=== PATIENT | female | born 1935 | race Caucasian/White ===

== ENCOUNTER → 2023-08-20 13:52 | Outpatient (BNV) | payer MEDICARE, SELFPAY | PROVIDERS: PCP Family Medicine; Visit Provider Internal Medicine Medical Oncology | DX: R59.1 Generalized enlarged lymph nodes (principal) | CPT/HCPCS: 99204; 99213 ==

== ENCOUNTER 2023-09-07 13:04 | Outpatient (AMB) | payer MEDICARE, SELFPAY ==
--- NOTE | 2023-09-07 13:20 | A.OFFVIS_ITS ---
Intake Vital Signs 3 09/07/23 13:30 Height 5 ft 6 in Weight 120 lb BMI 19.4 BP 130/64 Blood Pressure Location Lt brachial Position Sitting Pulse 66 Intake Visit Reasons: Neck adenopathy Intake Note: Patient is seen in office for evaluation and treatment of neck adenopathy. 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 She reports a previous history of non- Hodgkin's lymphoma and has had multiple lymph nodes removed but no chemotherapy required. She also has a history of an endocrine pancreatic tumor perhaps a insulinoma treated by Dr. Santiago Atkinson in [place]. She was recently diagnosed with a skin rash on her back and feels that they may be related to the enlarged lymph node. She also has numbness and bluish changes in the left arm involving the 1st 2nd and 3rd fingers. She is requesting excision of the palpable lymph node. [facility] Medical History Osteoporosis Gluten-sensitive enteropathy Lymphadenitis Surgical History Hx of hysterectomy Family History Father Prostate CA Mother Cerebrovascular accident Social History Patient Tobacco Use Status: Never used Tobacco service: No Current occupational status: retired Review of Systems Const All systems reviewed & are unremarkable except as noted in HPI and below Physical Exam Vital Signs: Last Vital Signs Pulse 66 09/07/23 13:30 BP 130/64 09/07/23 13:30 BMI result Body Mass Index 19.4 Const General: cooperative and no acute distress Nutritional Appearance: well nourished Orientation/consciousness: patient oriented x3 Limitations: no limitations HEENT Head: Yes normocephalic and Yes atraumatic Ears: hearing grossly normal bilaterally Neck Neck images: 2 1. 1 cm mobile lymph node noted at the hairline posterior right neck. Resp Effort & Inspection: normal respiratory effort, no audible wheezes, no cough and no respiratory distress Cardio Jugular venous distension: no JVD GI Inspection: Yes normal to inspection Skin Other: Warm, dry, no rash Neuro General: patient oriented x3 Extrem General: Yes no clubbing, cyanosis or edema Assessment & Plan Assessment & Plan (1) Head and neck lymphadenopathy: Code(s): R59.1 - Generalized enlarged lymph nodes Plan 87-year-old female patient presenting with enlarged lymph node in the posterior right neck. This was confirmed on physical examination. Patient does have a prior history of non-Hodgkin's lymphoma and pancreatic tumor and has undergone previous lymph nodes excisions. She is requested excision of this enlarged lymph node. I reviewed the procedure, risks, and alternatives in detail and she consents to the excision of the right posterior neck lymph node. This will be scheduled as a short-stay surgery at her earliest convenience. Coding Level of Care Code New Pt Level 4 (68509) Diagnoses Head and neck lymphadenopathy R59.1
[2023-09-07 13:30] VITALS: BP 130/64; PULSE 66; BMI 19.4
== END 2023-09-07 13:53 | disposition home or self-care (01) ==
PROVIDERS: PCP Family Medicine; Referring Provider Internal Medicine Medical Oncology; Visit Provider Surgery
DX: R59.1 Generalized enlarged lymph nodes (principal)
CPT/HCPCS: 99204

== ENCOUNTER → 2023-09-07 13:04 | Outpatient (BNVA) | payer MEDICARE, SELFPAY | PROVIDERS: PCP Family Medicine; Referring Provider Internal Medicine Medical Oncology; Visit Provider Surgery | DX: R59.1 Generalized enlarged lymph nodes (principal) | CPT/HCPCS: 99202 ==

== ENCOUNTER 2023-09-22 05:57 | Day surgery (SDC) | payer MEDICARE, SELFPAY ==
--- NOTE | 2023-09-20 15:01 | HO.ANESPROP2 ---
Documented by User: Lazara Huber NP 09/20/23 15:05 HPI - Anesthesia Eval Consult details Narrative: 87yo F for Right Excision Posterior Neck Lymph Node (remote hx of lymphoma) [facility] Active Problems Active Problems: All Active Problems (Updated 08/20/23 @ 15:30 by Yarelis Cross MD) Head and neck lymphadenopathy (Acute) Past Medical History Medical History Osteoporosis Gluten-sensitive enteropathy Lymphadenitis Family History Family History Father Prostate CA Mother Cerebrovascular accident Surgical History Surgical History Hx of colonoscopy Hx of hysterectomy Social History Social History Patient Tobacco Use Status: Never used Tobacco Use of substances other than those prescribed or required for medical reasons: No Are you DNR?: No Advance Directives: No Advance Directives Information Provided: Yes service: No Current occupational status: retired [employer] Allergies Allergy/AdvReac Type Severity Reaction Status Date / Time No Known Allergies Allergy Verified 09/20/23 14:24 Home Medications Medication Instructions Recorded Confirmed Last Taken Type clobetasol 0.05 % topical ointment 0.05 appl topical BID PRN Itching 08/20/23 09/22/23 Unknown History Exam Pertinent Lab Results Pertinent Lab Results: Laboratory Tests 09/20/23 14:21 WBC 6.2 Hgb 12.8 Hct 39.1 Plt Count 119 L Sodium 138 Potassium 4.0 Chloride 104 Carbon Dioxide 28 BUN 16 Creatinine 0.66 Assessment and Plan Assessment Anesthesia Assessment: Chart Reviewed Documented by User: Fior Rosenbaum MD 09/22/23 08:20 HPI - Anesthesia Eval Consult details Narrative: 87yo F for Right Excision Posterior Neck Lymph Node (remote hx of low grade lymphoma diagnosed in per patient) [facility] Active Problems Active Problems: All Active Problems (Updated 09/22/23 @ 07:20 by Fior Rosenbaum MD) Head and neck lymphadenopathy (Acute) Past Medical History Medical History Osteoporosis Gluten-sensitive enteropathy Lymphadenitis Family History Family History Father Prostate CA Mother Cerebrovascular accident Family history of problems with anesthesia: No Surgical History Surgical History Hx of colonoscopy Hx of hysterectomy History of Problems with Anesthesia: No Social History Social History Patient Tobacco Use Status: Never used Tobacco Use of substances other than those prescribed or required for medical reasons: No Are you DNR?: No Advance Directives: No Advance Directives Information Provided: Yes service: No Current occupational status: retired [employer] Allergies Allergy/AdvReac Type Severity Reaction Status Date / Time No Known Allergies Allergy Verified 09/20/23 14:24 Home Medications Medication Instructions Recorded Confirmed Last Taken Type clobetasol 0.05 % topical ointment 0.05 appl topical BID PRN Itching 08/20/23 09/22/23 Unknown History Exam Height,Weight and Vital Signs: Height 5 ft 6 in Weight 53.615 kg Vital Signs Temp Pulse Resp BP Pulse Ox O2 Del Method 09/22/23 06:23 98.2 F 78 18 147/76 H 96 Room Air Airway Mallampati Class: III (Small mouth) TM Dist: >3cm Neck ROM: Full Loose/Missing/Broken Teeth: No (Denies broien, loose, missing teeth) Heart: RRR Lungs: CTAB Assessment and Plan Assessment Anesthesia Assessment: Anesthesia Plan Discussed and Chart Reviewed Final Anesthetic Review Family History of Problems with Anesthesia: No History of Problems with Anesthesia: No NPO: Yes ASA Class: II Final Preanesthetic Review: No Changes in Pt Med Stat, Meds/Allgs Chart Reviewed, Consent Obtained/Reviewed and Anes Risks/Benef Reviewed Patient Risk: Low Procedure Risk: Low Assessment/Block/Sedation in SS: Assess/Block/Sedation- Anesthetic Plan Anesthetic Plan: GA and MAC: Disposition: Standard PACU
[2023-09-22 06:21] VITALS: BMI 19.1
[2023-09-22 06:23] VITALS: BP 147/76; PULSE 78; RESP 18; TEMP 36.8; O2SAT 96
[2023-09-22] MEDS: Lactated Ringers 1,000 ML 100 ML IVCONT (06:44)
--- NOTE | 2023-09-22 07:26 | MHC.SHP ---
Pre-Procedural Eval Section A - 24 Hr Update-Section A only Date of Service: 09/22/23 The patient is an INPATIENT: No Changes since office visit: Yes Patient answered all questions; No Cold of Flu in the past 2 weeks, No New Medical Problems and No Changes in Medication The patient has been examined within 24 hours of the surgical procedure. The History & Physical has been completed within 30 days and I have reviewed it.: Yes Section B - Complete if H&P > 30 days Chief Complaint: Generalized enlarged lymph nodes Allergies: Allergies Allergy/AdvReac Type Severity Reaction Status Date / Time No Known Allergies Allergy Verified 09/20/23 14:24 Plan Diagnosis/Plan: Unchanged I have reviewed the history and physical and performed a pertinent physical examination on my patient. No changes have occurred unless specified. Time Spent With Patient Time: Total time managing care of this patient today ____ minutes.
--- NOTE | 2023-09-22 08:16 | P.OP_ITS ---
Operative Note Operative Note Date of Service: 09/22/23 Narrative: Preoperative diagnosis: Possible right posterior neck lymphadenopathy Postoperative diagnosis: Negative exploration Procedure: Right posterior neck exploration, no lymph node identified Surgeon: Amish Celestin MD Food Service Representative: Arielle Brown PA-C Anesthesia: MAC Indications for procedure: 87-year-old female patient presenting with a soft tissue mass in the posterior neck felt to possibly be a lymph node. Patient reports pain associated with this and is requesting excision. Operative findings: Exploration revealed thickening of normal muscle but no normal or abnormal lymph node Specimen: None Estimated blood loss: Less than 2 mL Complications: None Procedure details: Patient was brought to the OR placed in a supine position. After administering light sedation the patient was placed in a left lateral decubitus position. The site of the palpable abnormality was previously marked by the patient in the posterior right neck just below the hairline. The neck was prepped with ChloraPrep and draped in a sterile fashion. A surgical time- out was called the consent confirmed. Patient received preoperative antibiotics. Local anesthesia was then infiltrated in a longitudinal fashion over the palpable abnormality. This carried out through subcutaneous tissue, past the platysmas. The palpable abnormality turned out to be normal appearing muscle. No enlarged lymph nodes were identified. The wound was explored superiorly and inferiorly as well as medial and lateral of the incision. No adenopathy was appreciated in this location. Wounds were closed using 3-0 Polysorb to reapproximate the latissimus muscle and dermis. Skin was then closed using a running subcuticular 4-0 Polysorb suture. Steri-Strips, 2 x 2 gauze and paper tape were then applied. The patient tolerated the procedure well. Sponge, instrument, and needle counts reported as correct. The patient was transferred to PACU in stable condition.
[2023-09-22 08:24] VITALS: BP 112/53; PULSE 64; RESP 16; TEMP 36.2; O2SAT 98
[2023-09-22 08:40] VITALS: BP 150/71; PULSE 68; RESP 17; TEMP 36.2; O2SAT 99
== END 2023-09-22 09:22 | disposition home or self-care (01) ==
PROVIDERS: PCP Family Medicine; Visit Provider Surgery
PROC: (CPT 38500; principal; 2023-09-22 07:30)
DX: R22.1 Localized swelling, mass and lump, neck (principal); M54.2 Cervicalgia
CPT/HCPCS: 21899; J0690; J2371; J2704; J2795; J3010

== ENCOUNTER → 2023-09-22 05:57 | Outpatient (BNV) | payer MEDICARE, SELFPAY | PROVIDERS: PCP Family Medicine; Visit Provider Surgery | DX: R59.1 Generalized enlarged lymph nodes (principal) | CPT/HCPCS: 38510 ==

== ENCOUNTER 2023-12-09 08:44 | Outpatient (AMB) | payer MEDICARE, SELFPAY ==
--- NOTE | 2023-12-09 08:53 | A.OFFVIS_ITS ---
Vital Signs 12/09/23 08:54 Height 5 ft 6 in Weight 115 lb 8.356 oz BMI 18.6 BP 112/60 Blood Pressure Location Rt brachial Position Sitting Pulse 62 Pulse Oximetry (%) 96 Intake Visit Reasons: Raynauds/CM Intake Note: New patient, referred by Dr. Cross, presents to office today for Raynaud's. Reports morgan hand and finger pain, R> L, x 5 years No prior rheumatologists. Accompanied by: Grand Child Allergies No Known Allergies Allergy (Verified 12/27/23 10:04) HPI Comments Details: Ms. Bridges 88yoF accompanied ny her grandson, here on referral for evaluation of purpuric rash with scaling that itches. She was seen by DERM at [facility] who did biopsy and told her she had inflammation in their body . She was treated prednisone, uses clobetasol liquid on scalp and cream on skin; on trunk, scalp, hands. The rash is improving but the Prednisone is completed. She developed the rash around same time when she had lump on right posterior at nape of neck. --Was told she had lymphoma in the early . But is now told she has no evidence of ever having lymphoma. Was never treated --2007 Pancreatic surgery to removed cysts. Was passing out --has had multiple lymph nodes excised over the years - never diagnosed with cancer. --no dry mouth, mouth sores, or dry eyes. --no joint swelling, redness, --Dupuytren's 4th flexor tendon right severe, left mild. --No CTD in family. --Fingers and hands have pain with hard work --no headaches, no jaw pain, swallows ok. --denies blood in urine or stool, chronic diarrhea. No abdominal pain. denies bleeding from anywhere but does bruise easily. --denies SOB, pericarditis, pleuritis. --denies taking medication that could have been the cause of the rash --Grandson has Uveiitis [facility] Medical History (Updated 12/30/23 @ 10:45 by FAWN Munoz-) Osteoarthritis of hands, bilateral Dupuytren contracture Rash and nonspecific skin eruption Purpuric disorder Osteoporosis Gluten-sensitive enteropathy Lymphadenitis Surgical History History of neck surgery (09/22/23) Hx of colonoscopy Hx of hysterectomy Family History Father Prostate CA Mother Cerebrovascular accident Arthritis Sister Arthritis Social History Alcohol intake: current Alcohol intake frequency: does not drink Patient Tobacco Use Status: Never used Tobacco service: No Current occupational status: retired Review of Systems Const All systems reviewed & are unremarkable except as noted in HPI and below Physical Exam Vital Signs: Last Vital Signs Pulse 62 12/09/23 08:54 BP 112/60 12/09/23 08:54 Pulse Ox 96 12/09/23 08:54 BMI result Body Mass Index 18.6 Vital signs reviewed. Constitutional: Non-toxic appearing. No acute distress. Well-developed and well-nourished. HEENT: Normocephalic and atraumatic. External auditory canals without erythema or edema bilaterally. Moist mucous membranes. No pharyngeal erythema or exudates. Skin: Warm and dry. scattered erythematous lesions to mid to upper back and lower abdomen. Neck: Full and painless range of motion. No cervical lymphadenopathy. Cardio: Regular rate and rhythm. No murmurs, gallops, or rubs. No lower extremity edema. No JVD. Pulmonary: No respiratory distress. No accessory muscle usage. Gastrointestinal: Soft, nontender, and nondistended in all 4 quadrants. Normoactive bowel sounds in all 4 quadrants. Genitourinary: No CVA tenderness. Musculoskeletal: Normal range of motion in joints throughout the body. Multiple finger Dupuytren's contracture and IP bony enlargement bilaterally with thickened flexor tendons and skin changes due to contracture. Neuro: Alert and oriented x4. Cranial nerves 2-12 grossly intact. No focal deficits appreciated. Results Reviewed Results Reviewed: Laboratory Tests 10/21/23 12/09/23 14:33 10:22 WBC 6.1 RBC 4.18 L Hgb 12.8 Hct 38.4 Creatinine 0.64 AST 34 H ALT 38 H Aldolase 6.2 IgG Total 604 IgA Total 65 L IgM 114 Rheumatoid Factor < 13.0 Cycl Citrul Peptide IgG <16 BERNADETTE Screen NEGATIVE Complement C4 12 HLA-B27 Negative Assessment & Plan Assessment & Plan (1) Purpuric disorder: Code(s): D69.2 - Other nonthrombocytopenic purpura Category: Medical (2) Rash and nonspecific skin eruption: Code(s): R21 - Rash and other nonspecific skin eruption Category: Medical (3) Dupuytren contracture: Code(s): M72.0 - Palmar fascial fibromatosis [Dupuytren] Category: Medical (4) Osteoarthritis of hands, bilateral: Code(s): M19.041 - Primary osteoarthritis, right hand; M19.042 - Primary osteoarthritis, left hand Category: Medical Qualifiers: Osteoarthritis type: primary Qualified Code(s): M19.041 - Primary osteoarthritis, right hand; M19.042 - Primary osteoarthritis, left hand Plan #Rash:Ms. Bridges here for rash of unknown cause. She does associate that she had swelling to her neck the rash started then. The rash was improved with prednisone. The main rash is flat and macular and contiguous with a scaly surface, suspicious of psoriasis. There is also a scattered purpric rash to her hand that is also improved by the prednisone. This gives the impression of a vasculitc feature. Her Rheum labs were non remarkable and ESR/CRP wnl. We will continue the Prednisone to resolution of rash given it is responding favaourably. There is no other signs and symptoms of CTD or inflammatory processes. The patient is fairly healthy and uses mostly natural products. I will reach out to [facility] for the biopsy report #Hand OA/Dupuytren's: By observation her hands do have severe OA but she does not find them especially bothersome. There is also Dupuytren's contractor to bilateral palms. I will obtain x-rays to assess for an inflammatory features. I spent 40 minutes reviewing history, evaluating patient, and documenting F/u 3 weeks Orders: Orders Erythrocyte Sedimentation Rate 12/09/23 D69.2 - Other nonthrombocytopenic purpura, R21 - Rash and other nonspecific skin eruption Comprehensive Met. Panel 12/09/23 D69.2 - Other nonthrombocytopenic purpura, R21 - Rash and other nonspecific skin eruption Complete Blood Count Auto Diff 12/09/23 D69.2 - Other nonthrombocytopenic purpura, R21 - Rash and other nonspecific skin eruption C Reactive Protein 12/09/23 D69.2 - Other nonthrombocytopenic purpura, R21 - Rash and other nonspecific skin eruption Complement C3 12/09/23 D69.2 - Other nonthrombocytopenic purpura, R21 - Rash and other nonspecific skin eruption Anti DNA DS Antibody 12/09/23 D69.2 - Other nonthrombocytopenic purpura, R21 - Rash and other nonspecific skin eruption Anti-Centromere B Antibodies 12/09/23 D69.2 - Other nonthrombocytopenic purpura, R21 - Rash and other nonspecific skin eruption Protein Electrophoresis, Serum 12/09/23 D69.2 - Other nonthrombocytopenic purpura, R21 - Rash and other nonspecific skin eruption Protein Creatinine Ratio, Ur 12/09/23 D69.2 - Other nonthrombocytopenic purpura, R21 - Rash and other nonspecific skin eruption XR hand RT min 3V 12/09/23 D69.2 - Other nonthrombocytopenic purpura, R21 - Rash and other nonspecific skin eruption XR hand LT min 3V 12/09/23 D69.2 - Other nonthrombocytopenic purpura, R21 - Rash and other nonspecific skin eruption Cyclic Citrullinated Peptide 12/09/23 R21 - Rash and other nonspecific skin eruption, D69.2 - Other nonthrombocytopenic purpura, R59.1 - Generalized enlarged lymph nodes Rheumatoid Factor 12/09/23 R21 - Rash and other nonspecific skin eruption, D69.2 - Other nonthrombocytopenic purpura, R59.1 - Generalized enlarged lymph nodes HLA B27 12/09/23 R21 - Rash and other nonspecific skin eruption Creatine Kinase Total 12/09/23 D69.2 - Other nonthrombocytopenic purpura, R21 - Rash and other nonspecific skin eruption Complement C4 12/09/23 D69.2 - Other nonthrombocytopenic purpura, R21 - Rash and other nonspecific skin eruption Anti Extractable Nuclear Ag 12/09/23 D69.2 - Other nonthrombocytopenic purpura, R21 - Rash and other nonspecific skin eruption ANCA Vasculitides 12/09/23 D69.2 - Other nonthrombocytopenic purpura, R21 - Rash and other nonspecific skin eruption BERNADETTE Reflex Titer and Pattern 12/09/23 D69.2 - Other nonthrombocytopenic purpura, R21 - Rash and other nonspecific skin eruption Aldolase 12/09/23 D69.2 - Other nonthrombocytopenic purpura, R21 - Rash and other nonspecific skin eruption Immunofixation Pnl, Serum 12/09/23 D69.2 - Other nonthrombocytopenic purpura, R21 - Rash and other nonspecific skin eruption UA w Microscopic 12/09/23 D69.2 - Other nonthrombocytopenic purpura, R21 - Rash and other nonspecific skin eruption Sjogren's Antibodies 12/09/23 D69.2 - Other nonthrombocytopenic purpura, R21 - Rash and other nonspecific skin eruption Scleroderma 70 Antibody 12/09/23 D69.2 - Other nonthrombocytopenic purpura, R21 - Rash and other nonspecific skin eruption Coding Level of Care Code New Pt Level 5 (90913) Diagnoses Purpuric disorder D69.2 Rash and nonspecific skin eruption R21 Dupuytren contracture M72.0 Primary osteoarthritis of both hands M19.041; M19.042 Osteoarthritis type: primary
[2023-12-09 08:54] VITALS: BP 112/60; PULSE 62; O2SAT 96; BMI 18.6
== END 2023-12-09 10:09 | disposition home or self-care (01) ==
PROVIDERS: PCP Family Medicine; Visit Provider Nurse Practitioner Family
DX: I73.00 Raynaud's syndrome without gangrene (principal); D69.2 Other nonthrombocytopenic purpura; R21 Rash and other nonspecific skin eruption; M72.0 Palmar fascial fibromatosis [Dupuytren]; M19.041 Primary osteoarthritis, right hand; M19.042 Primary osteoarthritis, left hand
CPT/HCPCS: 99204

== ENCOUNTER 2023-12-09 10:15 | Outpatient (REF) | payer MEDICARE, SELFPAY ==
[2023-12-09 14:04] LABS: Appearance Urine Clear; Color Urine Yellow; Glucose Urine UA Negative (Negative); Leukocyte Esterase Urine Moderate (2+) (Negative); Nitrite Urine Negative (Negative); PH 7.5 (5.0-9.0); UMIC TRIGGER UA YES; Urine Blood Negative (Negative); Urine Ketones Negative (Negative); Urine Protein Negative (Neg-Trace)
[2023-12-09 14:08] LABS: Bacteria Urine 4+ (None Seen); Hyaline Casts Urine 0-2 /LPF (0-2); RBC Urine 0-2 /HPF (0-2); Squamous Epithelial Cell Urine 0-2 /HPF (0-2); WBC Urine 21-50 /HPF (0-5)
[2023-12-09 14:11] LABS: Rheumatoid Factor < 13.0 IU/mL (<15.0)
[2023-12-13 14:53] LABS: Anti Nuclear Antibody Screen NEGATIVE (NEGATIVE)
[2023-12-13 16:37] LABS: Cyclic Citrullinated Peptide <16 UNITS
[2023-12-13 22:03] LABS: HLA B27 Negative (Negative)
[2023-12-14 12:52] LABS: IgA 65 mg/dL (70-320); IgG 604 mg/dL (600-1540); IgM 114 mg/dL (50-300)
[2023-12-14 13:52] LABS: Antibody to SS-A Antigen <1.0 NEG AI (<1.0 NEG); Antibody to SS-B Antigen <1.0 NEG AI (<1.0 NEG); Myeloperoxidase Antibody <1.0 AI; Proteinase 3 PR3 Antibodies <1.0 AI; SM/Ribonucleoprotein Ab <1.0 NEG AI (<1.0 NEG); Scleroderma 70 Antibody <1.0 NEG AI (<1.0 NEG); Smith Protein <1.0 NEG AI (<1.0 NEG)
[2023-12-14 22:34] LABS: Aldolase 6.2 U/L (<=8.1)
== END 2023-12-09 10:16 | disposition home or self-care (01) ==
LOC: HO.10HDL 10:15
PROVIDERS: Visit Provider Nurse Practitioner Family
DX: D69.2 Other nonthrombocytopenic purpura (principal); R21 Rash and other nonspecific skin eruption; R59.1 Generalized enlarged lymph nodes; I73.00 Raynaud's syndrome without gangrene; M72.0 Palmar fascial fibromatosis [Dupuytren]; M19.041 Primary osteoarthritis, right hand; M19.042 Primary osteoarthritis, left hand
CPT/HCPCS: 36415; 81001; 82085; 82784; 86021; 86038; 86160; 86200; 86235; 86334; 86431; 86812; 99202

== ENCOUNTER 2023-12-27 09:52 | Outpatient (AMB) | payer MEDICARE, SELFPAY ==
--- NOTE | 2023-12-27 09:57 | MHC.OFFVIS ---
Vital Signs 12/27/23 09:58 Height 5 ft 6 in Weight 122 lb 12.76 oz BMI 19.8 BP 106/62 Blood Pressure Location Rt brachial Position Sitting Pulse 74 Pulse Source Pulse Oximeter Pulse Oximetry (%) 96 Oxygen Delivery Method Room Air Intake Visit Reasons: Skin Rash/Hand Dupuytren's Intake Note: Pt last seen 12/09/23 presents today for follow up. Reports rash has cleared up Trash Hauler Required: No Accompanied by: Grand Child Allergies No Known Allergies Allergy (Verified 12/27/23 10:04) HPI Comments Details: Ms. Yuliana Olivo accompanied by her grandson for follow-up of purpuric rash with scaling that itches. She continues on Prednisone 20 mg since last visit. She will start the 10mg QD tomorrow for 2 weeks. She thinks the rash continues to improve and does not see any new outbreaks. She offers no additional concerns at this time. Initial history 12/09/2023: Ms. Yuliana Olivo accompanied by her grandson, here on referral for evaluation of purpuric rash with scaling that itches. She was seen by DERM at [facility] who did biopsy and told her she had inflammation in their body . She was treated prednisone, uses clobetasol liquid on scalp and cream on skin; on trunk, scalp, hands. The rash is improving but the Prednisone is completed. She developed the rash around same time when she had lump on right posterior at nape of neck. --Was told she had NH lymphoma in the early . But is now told she has no evidence of ever having lymphoma. Was never treated. She has had multiple lymph nodes excised over the years - never diagnosed with cancer all nodes were benign; recent node 09/22/2023 --2007 Pancreatic surgery to removed cysts. Was passing out --no dry mouth, mouth sores, or dry eyes. --no joint swelling, redness, --Dupuytren's 4th flexor tendon right severe, left mild. --No CTD in family. --Fingers and hands have pain with hard work --no headaches, no jaw pain, swallows ok. --denies blood in urine or stool, chronic diarrhea. No abdominal pain. denies bleeding from anywhere but does bruise easily. --denies SOB, pericarditis, pleuritis. --fingers turn blue when cold --denies taking medication that could have been the cause of the rash --Grandson has Uveiitis [facility] Medical History (Updated 12/30/23 @ 10:45 [facility] Osteoarthritis of hands, bilateral Dupuytren contracture Rash and nonspecific skin eruption Purpuric disorder Osteoporosis Gluten-sensitive enteropathy Lymphadenitis Surgical History History of neck surgery (09/22/23) Hx of colonoscopy Hx of hysterectomy Family History Father Prostate CA Mother Cerebrovascular accident Arthritis Sister Arthritis Social History Alcohol intake: current Alcohol intake frequency: does not drink Patient Tobacco Use Status: Never used Tobacco service: No Current occupational status: retired Review of Systems Const All systems reviewed & are unremarkable except as noted in HPI and below Physical Exam Vital Signs: Last Vital Signs Pulse 74 12/27/23 09:58 BP 106/62 12/27/23 09:58 Pulse Ox 96 12/27/23 09:58 Oxygen Delivery Method Room Air 12/27/23 09:58 BMI result Body Mass Index 19.8 Vital signs reviewed. Constitutional: Non-toxic appearing. No acute distress. Well-developed and well-nourished. HEENT: Normocephalic and atraumatic. External auditory canals without erythema or edema bilaterally. Moist mucous membranes. No pharyngeal erythema or exudates. Skin: Warm and dry. erythematous hyperpigmentesd area to mid to upper back and lower abdomen - rash is resolving leaving erythematous skin; no objective signs of Raynauds Neck: Full and painless range of motion. No cervical lymphadenopathy. Cardio: Regular rate and rhythm. No murmurs, gallops, or rubs. No lower extremity edema. No JVD. Pulmonary: No respiratory distress. No accessory muscle usage. Gastrointestinal: Soft, nontender, and nondistended in all 4 quadrants. Normoactive bowel sounds in all 4 quadrants. Genitourinary: No CVA tenderness. Musculoskeletal: Normal range of motion in joints throughout the body. Multiple finger Dupuytren's contracture and IP bony enlargement bilaterally with thickened flexor tendons and skin changes due to contracture. Neuro: Alert and oriented x4. Cranial nerves 2-12 grossly intact. No focal deficits appreciated. Results Reviewed Results Reviewed: Laboratory Tests 10/21/23 12/09/23 14:33 10:22 WBC 6.1 RBC 4.18 L Hgb 12.8 Hct 38.4 Creatinine 0.64 AST 34 H ALT 38 H Aldolase 6.2 IgG Total 604 IgA Total 65 L IgM 114 Rheumatoid Factor < 13.0 Cycl Citrul Peptide IgG <16 BERNADETTE Screen NEGATIVE Complement C4 12 HLA-B27 Negative Assessment & Plan Assessment & Plan (1) Purpuric disorder: Code(s): D69.2 - Other nonthrombocytopenic purpura Category: Medical (2) Rash and nonspecific skin eruption: Code(s): R21 - Rash and other nonspecific skin eruption Category: Medical (3) Dupuytren contracture: Code(s): M72.0 - Palmar fascial fibromatosis [Dupuytren] Category: Medical (4) Osteoarthritis of hands, bilateral: Code(s): M19.041 - Primary osteoarthritis, right hand; M19.042 - Primary osteoarthritis, left hand Category: Medical Qualifiers: Osteoarthritis type: primary Qualified Code(s): M19.041 - Primary osteoarthritis, right hand; M19.042 - Primary osteoarthritis, left hand Plan #Rash:Ms. Bridges here for rash of unknown cause. She does associate that she had swelling to her neck the rash started then. The rash was improved with prednisone so she will continue 10 mg QD for 14 days. The main rash is flat and macular and contiguous with a scaly surface, suspicious of psoriasis. There is also a scattered purpric rash to her hand that is also improved by the prednisone. This gives the impression of a vasculitc feature but her Rheum labs were non remarkable and ESR/CRP wnl. We will continue the Prednisone to resolution of rash given it is responding favorably. There is no other signs and symptoms of CTD or inflammatory processes. The patient is fairly healthy and uses mostly natural products. Still waiting on [facility] for the biopsy report #Hand OA/Dupuytren's: By observation her hands do have severe OA but she does not find them especially bothersome. There is also Dupuytren's contractor to bilateral palms. I will obtain x-rays to assess for an inflammatory features. I spent 20 minutes reviewing chart, evaluating patient, and documenting F/u 4 weeks to assess if rash worsens off prednisone. Medications: Refilled prednisone 2 tablets for 2 weeks, 1 tablet for two weeks. stop 30 tabs 0RF R21 - Rash and other nonspecific skin eruption Coding Level of Care Code Est Pt Level 3 (05434) Complex EM visit Add On G2211 Diagnoses Purpuric disorder D69.2 Rash and nonspecific skin eruption R21 Dupuytren contracture M72.0 Primary osteoarthritis of both hands M19.041; M19.042 Osteoarthritis type: primary
[2023-12-27 09:58] VITALS: BP 106/62; PULSE 74; O2SAT 96; BMI 19.8
== END 2023-12-27 10:29 | disposition home or self-care (01) ==
PROVIDERS: PCP Family Medicine; Visit Provider Nurse Practitioner Family
DX: D69.2 Other nonthrombocytopenic purpura (principal); R21 Rash and other nonspecific skin eruption; M72.0 Palmar fascial fibromatosis [Dupuytren]; M19.041 Primary osteoarthritis, right hand; M19.042 Primary osteoarthritis, left hand
CPT/HCPCS: 99213; G2211

== ENCOUNTER → 2023-12-27 09:52 | Outpatient (BNVA) | payer MEDICARE, SELFPAY | PROVIDERS: PCP Family Medicine; Visit Provider Nurse Practitioner Family | DX: M72.0 Palmar fascial fibromatosis [Dupuytren] (principal); M19.041 Primary osteoarthritis, right hand; M19.042 Primary osteoarthritis, left hand; R21 Rash and other nonspecific skin eruption; D69.2 Other nonthrombocytopenic purpura | CPT/HCPCS: 99212 ==

== ENCOUNTER 2024-02-01 14:50 | Outpatient (AMB) | payer MEDICARE, SELFPAY ==
--- NOTE | 2024-02-01 15:20 | MHC.OFFVIS ---
Vital Signs 02/01/24 15:24 Height 5 ft 6 in Weight 125 lb 10.616 oz BMI 20.3 BP 114/68 Blood Pressure Location Lt brachial Position Sitting Pulse 57 Pulse Source Pulse Oximeter Pulse Oximetry (%) 97 Oxygen Delivery Method Room Air Intake Visit Reasons: Raynauds Intake Note: Patient last seen on by Na Junior present today for follow up.12/27/23 Accompanied by: Grand Child Allergies No Known Allergies Allergy (Verified 02/01/24 15:26) Medication List - Last Reconciled 02/01/24 by Shaye Argueta MD calcium [id number] 260 mg calcium- 25 mcg-50 mg (Alive Calcium-Vitamin D3) tabs PO clobetasol 0.05% topical evening primrose oil mg PO yr-dnm-cahmh-calcium carb-K1 400 mcg-500 mg calcium-20 mcg (Women's 50 Plus Multivitamin) tabs PO vitamin A-vitamin C-vit E-min 1 tab PO DAILY HPI Comments Details: Patient returns for follow-up accompanied by her grandson. She stated that prednisone did have some relief but she still continues to have itchy rashes on her back, , back of her neck, upper chest. Rashes are intensely itchy. She stated that she was evaluated by director compliance Dr. Florida Ellison and she had treated with different creams and ointments without much relief, Dupixent was suggested but patient did not want to pursue it Initial history 12/09/2023: Ms. Bridges 88yoF accompanied by her grandson, here on referral for evaluation of purpuric rash with scaling that itches. She was seen by DERM at [facility] who did biopsy and told her she had inflammation in their body . She was treated prednisone, uses clobetasol liquid on scalp and cream on skin; on trunk, scalp, hands. The rash is improving but the Prednisone is completed. She developed the rash around same time when she had lump on right posterior at nape of neck. --Was told she had [place] lymphoma in the early . But is now told she has no evidence of ever having lymphoma. Was never treated. She has had multiple lymph nodes excised over the years - never diagnosed with cancer all nodes were benign; recent node 09/22/2023 --2007 Pancreatic surgery to removed cysts. Was passing out --no dry mouth, mouth sores, or dry eyes. --no joint swelling, redness, --Dupuytren's 4th flexor tendon right severe, left mild. --No CTD in family. --Fingers and hands have pain with hard work --no headaches, no jaw pain, swallows ok. --denies blood in urine or stool, chronic diarrhea. No abdominal pain. denies bleeding from anywhere but does bruise easily. --denies SOB, pericarditis, pleuritis. --fingers turn blue when cold --denies taking medication that could have been the cause of the rash --Grandson has Uveiitis [facility] Medical History Osteoarthritis of hands, bilateral Dupuytren contracture Rash and nonspecific skin eruption Purpuric disorder Osteoporosis Gluten-sensitive enteropathy Lymphadenitis Surgical History History of neck surgery (09/22/23) Hx of colonoscopy Hx of hysterectomy Family History Father Prostate CA Mother Cerebrovascular accident Arthritis Sister Arthritis Social History Alcohol intake: current Alcohol intake frequency: does not drink Patient Tobacco Use Status: Never used Tobacco service: No Current occupational status: retired Review of Systems [facility] [place] Denies arthralgias and Denies stiffness Skin/Breast Reports pruritus, Reports lesions and Reports rash Physical Exam Vital Signs: Last Vital Signs Pulse 57 02/01/24 15:24 BP 114/68 02/01/24 15:24 Pulse Ox 97 02/01/24 15:24 Oxygen Delivery Method Room Air 02/01/24 15:24 BMI result Body Mass Index 20.3 Const General: cooperative, healthy appearing and comfortable Nutritional Appearance: average body habitus and thin Limitations: no limitations HEENT Head: Yes normocephalic and Yes atraumatic Mouth: oropharynx normal Resp Effort & Inspection: normal respiratory effort and able to speak in complete sentences Skin Other: Eczematous rashes on her back below her bra line, upper chest Thickened erythematous skin on her nape Extrem Other: Significant osteoarthritic changes of both hands with no active synovitis Significant Dupuytren's contracture right hand Assessment & Plan Assessment & Plan (1) Rash and nonspecific skin eruption: Code(s): R21 - Rash and other nonspecific skin eruption Category: Medical Plan: This is an 88-year-old female with history of low-grade non-Hodgkin's lymphoma who presents for evaluation of diffuse rash. About a year ago she started having diffuse pruritic rashes on her back, chest, her nape, she was evaluated by director compliance Dr. Florida Ellison an numerous creams and ointments were tried without much improvement, Dupixent was suggested and patient refused. She was evaluated by Na miguel we weeks ago and workup for underlying autoimmune rheumatic disease was done and it is negative. She was prescribed prednisone 10 mg daily for 2 weeks with improvement but she continues to have few itchy rashes. Upon evaluation I do not see any signs suggestive of an autoimmune rheumatic disease. Advised patient to return to her director compliance, consider evaluation by eap specialist Plan I spent 18 minutes reviewing patient's chart, evaluating patient, counseling patient and documenting in the chart Coding Level of Care Code Est Pt Level 3 (54195) Diagnoses Rash and nonspecific skin eruption R21
[2024-02-01 15:24] VITALS: BP 114/68; PULSE 57; O2SAT 97; BMI 20.3
== END 2024-02-01 16:07 | disposition home or self-care (01) ==
PROVIDERS: PCP Family Medicine; Visit Provider Student in an Organized Health Care Education/Training Program
DX: R21 Rash and other nonspecific skin eruption (principal)
CPT/HCPCS: 99213

== ENCOUNTER → 2024-02-01 14:50 | Outpatient (BNVA) | payer MEDICARE, SELFPAY | PROVIDERS: PCP Family Medicine; Visit Provider Student in an Organized Health Care Education/Training Program | DX: R21 Rash and other nonspecific skin eruption (principal); C85.90 Non-Hodgkin lymphoma, unspecified, unspecified site | CPT/HCPCS: 99212 ==